=== PATIENT | male | born 1955 | race Hispanic/Latino ===

== ENCOUNTER 2017-04-27 10:40 | Emergency (ER) | payer MEDICARE ==
[~2017-04-27] VITALS: Ht 165.1 cm; Wt 96.6 kg
[~2017-04-27 10:40] MED LIST: DICYCLOMINE PO; DULCOLAX; HUMALOG; LANTUS; LYRICA PO; METOPROLOL PO; MONTELUKAST; OMEPRAZOLE40 MG; SIMVASTATIN PO; STENDRA; TEMAZEPAM15 MG PO; TRADJENTA5 MG PO; TRAMADOL; VICTOZA 3-0.6 MG/0.1 SQ
[2017-04-27] MEDS ORDERED: DIATRIZOATE MEGL/DIATRIZOA SOD 30 ML BTL PO ONE (11:09)
[2017-04-27 11:19] LABS: BASOPHILS % 0.4 % (0.0-1.0); EOSINOPHILS # (AUTO) 0.1 (0.0-0.4); EOSINOPHILS % 1.3 % (0.0-6.0); HEMATOCRIT 50.3 % (38.2-49.6); HEMOGLOBIN 16.5 g/dL (14.0-18.0); LYMPHOCYTES # (AUTO) 1.9 (1.0-3.2); LYMPHOCYTES % 19.3 % (18.0-39.1); MEAN CORPUSCULAR HEMOGLOBIN 30.2 pg (28-32); MEAN CORPUSCULAR HGB CONC 32.8 g/dL (31-35); MONOCYTES # (AUTO) 0.6 (0.2-0.8); MONOCYTES % 6.1 % (4.4-11.3); NEUTROPHILS # (AUTO) 7.3 (2.1-6.9); NEUTROPHILS % 72.6 % (38.7-80.0); PLATELET COUNT 239 x10e3/uL (140-360); RED BLOOD COUNT 5.47 x10e6/uL (4.3-5.7); RED CELL DISTRIBUTION WIDTH 13.1 % (11.7-14.4)
[2017-04-27 11:41] LABS: ALBUMIN 3.8 g/dL (3.5-5.0); ALBUMIN/GLOBULIN RATIO 0.8 (0.8-2.0); ANION GAP 14.7 mmol/L (8-16); CALCIUM 10.1 mg/dL (8.4-10.2); CREATININE, SERUM 1.28 mg/dL (0.72-1.25); POTASSIUM 4.7 mmol/L (3.5-5.1)
[2017-04-27 13:38] LABS: BILIRUBIN,URINE NEGATIVE (NEGATIVE); KETONES,URINE NEGATIVE (NEGATIVE); LEUKOCYTE ESTERASE ,URINE NEGATIVE (NEGATIVE); NITRITE,URINE NEGATIVE (NEGATIVE); URINE UROBILINOGEN 0.2 mg/dL (0.2 - 1)
[2017-04-27 13:51] LABS: CLARITY,URINE SL CLOUDY (CLEAR); COLOR,URINE YELLOW (YELLOW); PROTEIN,URINE DIPSTICK 1+ (NEGATIVE)
[2017-04-27 14:07] LABS: EPITHELIAL CELLS,URINE FEW /LPF
--- NOTE | 2017-04-27 14:10 | Diagnostic Imaging Report ---
PROCEDURE: CT ABDOMEN AND PELVIS WITH CONTRAST TECHNIQUE: The abdomen and pelvis were scanned utilizing a multidetector helical scanner from the diaphragm to the lesser trochanter after the IV administration of 100 cc of Isovue 370 and the oral administration of Gastroview. Coronal and sagittal multiplanar reformations were obtained. COMPARISON: None. INDICATIONS: ABDOMINAL PAIN FINDINGS: LOWER THORAX: Normal. HEPATOBILIARY: No focal hepatic lesions. No biliary ductal dilatation. Cholecystectomy. SPLEEN: No splenomegaly. PANCREAS: No focal masses or ductal dilatation. ADRENALS: No adrenal nodules. KIDNEYS/URETERS: No hydronephrosis, stones, or solid mass lesions. PELVIC ORGANS/BLADDER: Unremarkable. PERITONEUM / RETROPERITONEUM: No free air or fluid. LYMPH NODES: No lymphadenopathy. VESSELS: Unremarkable. GI TRACT: No distention or wall thickening. Normal appendix. Moderate amount of retained feces limits intraluminal evaluation. BONES AND SOFT TISSUES: Unremarkable. Degenerative changes of the lumbar spine. IMPRESSION: No acute abnormality of the abdomen and pelvis. Dictated by: David Marcos M.D. on 04/27/2017 at 14:20 Electronically approved by: David Marcos M.D. on 04/27/2017 at 14:20
[2017-04-27 14:47] LABS: CREATINE KINASE 97 IU/L (30-200)
[2017-04-27] MEDS ORDERED: IOPAMIDOL 370 MG/ML 200 ML INFUS..BTL INJ ONE (22:54)
[2017-04-27] MEDS ORDERED: SODIUM CHLORIDE 0.9% 50ML 50 ML ONE (22:54)
== END 2017-04-27 18:02 | disposition home or self-care (01) ==
LOC: ER 10:40
DX: R07.89 Other chest pain (principal); R10.11 Right upper quadrant pain; E11.9 Type 2 diabetes mellitus without complications; I10 Essential (primary) hypertension
CPT/HCPCS: 36415; 74177; 80053; 81001; 82550; 84484; 85025; 87086; 93005; 99284; Q9967

== ENCOUNTER → 2017-12-24 | Outpatient (CLI) | payer MEDICARE ==
[~2017-12-24] MED LIST changes: +DIATRIZOATE MEGL/DIATRIZOA SOD 30 ML BTL PO ONE; +IOPAMIDOL 370 MG/ML 200 ML INFUS..BTL INJ ONE; +SODIUM CHLORIDE 0.9% 50ML 50 ML ONE
[2017-12-24 09:45] LABS: CREATININE, SERUM 1.23 mg/dL (0.72-1.25)
--- NOTE | 2017-12-24 11:52 | Diagnostic Imaging Report ---
EXAM: CT Abdomen and Pelvis WITH contrast INDICATION: Right lower quadrant pain and constipation. COMPARISON: None. TECHNIQUE: Abdomen and pelvis were scanned utilizing a multidetector helical scanner from the lung base to the pubic symphysis after administration of IV contrast. Coronal and sagittal reformations were obtained. Routine protocol was performed. Scan was performed when during portal venous phase. IV CONTRAST: 100 mL of Isovue 370 ORAL CONTRAST: Gastrografin COMPLICATIONS: None RADIATION DOSE: Total DLP: 701.9 mGy*cm Estimated effective dose: (DLP x 0.015 x size factor) mSv CTDIvol has been reviewed. It is below the limits set by the Radiation Protocol Committee (RPC). FINDINGS: LINES and TUBES: None. LOWER THORAX: There is calcification of the coronary arteries, consistent with atherosclerotic disease. HEPATOBILIARY: Diffuse fatty infiltration of the liver. No evidence of focal lesion. No biliary ductal dilation. GALLBLADDER: Status post cholecystectomy. SPLEEN: No splenomegaly. PANCREAS: No focal masses or ductal dilatation. ADRENALS: No adrenal nodules KIDNEYS/URETERS: Kidneys enhance symmetrically. No evidence of hydronephrosis, solid mass, or stone. GI TRACT: There is diffuse mild colonic and rectal wall thickening. No evidence of distension. Appendix is normal. No significantly elevated stool burden. PELVIC ORGANS/BLADDER: Unremarkable. LYMPH NODES: No lymphadenopathy. VESSELS: There are scattered atherosclerotic calcifications in the aorta and branch vessels. PERITONEUM / RETROPERITONEUM: No free air or fluid. BONES AND SOFT TISSUES: Unremarkable. CONCLUSION: Findings consistent with diffuse mild colitis. Hepatic steatosis. Normal appendix. Signed by: Dr. Festus Stratton MD on 12/24/2017 11:49 AM
== END ==
LOC: CT 08:48
PROVIDERS: ATTEND Internal Medicine Gastroenterology
DX: R10.31 Right lower quadrant pain (principal); K59.00 Constipation, unspecified
CPT/HCPCS: 36415; 74177; 82565; 84520; Q9967

== ENCOUNTER 2022-09-05 10:23 | Inpatient (IN) | payer MEDICARE ==
[~2022-09-05] VITALS: Ht 165.1 cm; Wt 81.6 kg
[~2022-09-05 10:23] MED LIST changes: -DIATRIZOATE MEGL/DIATRIZOA SOD 30 ML BTL PO ONE; -IOPAMIDOL 370 MG/ML 200 ML INFUS..BTL INJ ONE; -SODIUM CHLORIDE 0.9% 50ML 50 ML ONE
[2022-09-05] MEDS ORDERED: ALBUTEROL/IPRATROPIUM 3 ML NEB NEB ONE (10:45)
[2022-09-05] MEDS ORDERED: ASPIRIN 81 MG CHEW TAB PO ONE ×2 (10:45→13:30)
[2022-09-05 10:46] LABS: BASOPHILS % 0.3 % (0.0-1.0); EOSINOPHILS # (AUTO) 0.1 (0.0-0.4); EOSINOPHILS % 1.9 % (0.0-6.0); HEMATOCRIT 36.6 % (38.2-49.6); HEMOGLOBIN 11.7 g/dL (14.0-18.0); LYMPHOCYTES % 26.7 % (18.0-39.1); MEAN CORPUSCULAR VOLUME 93.8 fL (81-99); MONOCYTES # (AUTO) 0.7 (0.2-0.8); MONOCYTES % 8.8 % (4.4-11.3); NEUTROPHILS # (AUTO) 4.7 (2.1-6.9); NEUTROPHILS % 61.9 % (38.7-80.0); PLATELET COUNT 243 x10e3/uL (140-360); RED CELL DISTRIBUTION WIDTH 13.3 % (11.7-14.4)
[2022-09-05 11:00] LABS: ANION GAP 15.2 mmol/L (8-16); CALCIUM 9.5 mg/dL (8.4-10.2); CREATININE, SERUM 1.31 mg/dL (0.72-1.25); POTASSIUM 4.2 mmol/L (3.5-5.1)
[2022-09-05] MEDS ORDERED: IOPAMIDOL 370 MG/ML 100 ML INFUS..BTL INJ ONE (11:14)
[2022-09-05] MEDS ORDERED: SODIUM CHLORIDE 0.9% 250ML 250 ML IV ONE (11:30)
[2022-09-05 12:11] LABS: BACTERIA,URINE FEW /HPF; CLARITY,URINE CLEAR (CLEAR); COLOR,URINE YELLOW (YELLOW); EPITHELIAL CELLS,URINE FEW /LPF; KETONES,URINE NEGATIVE (NEGATIVE); LEUKOCYTE ESTERASE ,URINE NEGATIVE (NEGATIVE); NITRITE,URINE NEGATIVE (NEGATIVE); PROTEIN,URINE DIPSTICK NEGATIVE (NEGATIVE); RBC,URINE 0-5 /HPF (0-5); URINE UROBILINOGEN 0.2 mg/dL (0.2 - 1); WBC,URINE (MAN) 0-5 /HPF (0-5)
[2022-09-05] MEDS ORDERED: ASPIRIN 325 MG TAB EC PO STA (13:17)
[2022-09-05] MEDS ORDERED: NITROGLYCERIN 2% OINT 1 GM PKT TOP ONE (13:30)
[2022-09-05] MEDS ORDERED: SODIUM CHLORIDE FLUSH 10 ML SYR INJ PRN (13:30)
[2022-09-05 13:39] VITALS: PULSE 82; RESP 20; O2SAT 95
[2022-09-05] MEDS: FAMOTIDINE 20 MG/2 ML VIAL IV SCH ×2 (14:11→21:18)
[2022-09-05 15:45] VITALS: BP 129/72; PULSE 80; RESP 17; TEMP 97.3; O2SAT 99
[2022-09-05] MEDS: NITROGLYCERIN 2% OINT 1 GM PKT TOP SCH (16:01)
[2022-09-05 20:00] VITALS: BP 110/62; PULSE 83; RESP 20; TEMP 98.7; O2SAT 100
[2022-09-05 20:05] VITALS: PULSE 80; RESP 20; O2SAT 98
[2022-09-05 21:00] VITALS: BP 110/62; PULSE 80; RESP 20; TEMP 98.7; O2SAT 98
[2022-09-05] MEDS ORDERED: ACETAMINOPHEN 325 MG TAB PO PRN (22:30)
[2022-09-05] MEDS ORDERED: IPRATROPIUM BROMIDE 0.02% 2.5 ML NEB NEB PRN (23:00)
[2022-09-05] MEDS ORDERED: FLOMAX0.4 MG PO (23:06)
[2022-09-05] MEDS ORDERED: FINASTERIDE5 MG PO (23:06)
[2022-09-05] MEDS ORDERED: ATORVASTATIN CA20 MG PO (23:06)
[2022-09-05] MEDS ORDERED: SOLIQUA 100 UNIT3 ML SQ (23:06)
[2022-09-05] MEDS ORDERED: PANTOPRAZOLE SO40 MG PO (23:06)
[2022-09-05] MEDS ORDERED: LOSARTAN POTASS25 MG PO (23:06)
[2022-09-05] MEDS ORDERED: METOPROLOL SUCC50 MG PO (23:06)
[2022-09-05] MEDS ORDERED: ACTOS15 MG PO (23:06)
[2022-09-05 23:12] VITALS: PULSE 83; RESP 20; O2SAT 96
[2022-09-05] MEDS: ALBUTEROL SULF 0.083% NEB SOLN 3 ML NEB NEB PRN (23:12)
[2022-09-06] VITALS (9 sets, daily range): BP systolic 105–132; BP diastolic 58–64; PULSE 67–86; RESP 18–20; TEMP 97.8–98.2; O2SAT 94–100
[2022-09-06] MEDS: NITROGLYCERIN 2% OINT 1 GM PKT TOP SCH ×4 (00:22→17:29)
[2022-09-06] MEDS: ASPIRIN 81 MG ENTERIC COATED PO SCH (10:01)
[2022-09-06] MEDS: FAMOTIDINE 20 MG/2 ML VIAL IV SCH ×2 (10:01→22:02)
[2022-09-06] MEDS ORDERED: ACETAMINOPHEN 325 MG TAB PO PRN (10:15)
[2022-09-06] MEDS ORDERED: DEXTROSE 50% SYRINGE 50 ML IV PRN (10:15)
[2022-09-06] MEDS: INSULIN REGULAR, HUMAN 100 UNIT/1 ML SQ SCH ×3 (13:33→21:00)
[2022-09-06] MEDS: FLUTICASONE PROPIONATE NASAL SPRAY NS SCH ×2 (13:34→22:01)
[2022-09-06] MEDS ORDERED: ENOXAPARIN SOD INJ 40 MG/0.4 ML SYR SC SCH (17:00)
[2022-09-06] MEDS: ENOXAPARIN SOD INJ 40 MG/0.4 ML SYR SC SCH (17:28)
[2022-09-06] MEDS ORDERED: METOPROLOL TARTRATE INJ 1 MG/ML VIAL IV ONE (20:45)
[2022-09-06] MEDS: TAMSULOSIN HCL 0.4 MG CAP PO SCH (22:02)
[2022-09-06] MEDS: ATORVASTATIN 40 MG TAB PO SCH (22:02)
[2022-09-07] VITALS (11 sets, daily range): BP systolic 123–148; BP diastolic 67–80; PULSE 71–89; RESP 17–20; TEMP 97.8–98.3; O2SAT 95–100
[2022-09-07] MEDS: ALBUTEROL SULF 0.083% NEB SOLN 3 ML NEB NEB PRN (00:10)
[2022-09-07] MEDS: NITROGLYCERIN 2% OINT 1 GM PKT TOP SCH ×4 (04:45→17:42)
[2022-09-07] MEDS: INSULIN REGULAR, HUMAN 100 UNIT/1 ML SQ SCH ×4 (07:30→19:42)
[2022-09-07] MEDS: ASPIRIN 81 MG ENTERIC COATED PO SCH (09:00)
[2022-09-07] MEDS ORDERED: METOPROLOL SUCCINATE 50 MG TAB XL PO SCH (09:00)
[2022-09-07] MEDS: FINASTERIDE 5 MG TAB PO SCH (09:00)
[2022-09-07] MEDS: FLUTICASONE PROPIONATE NASAL SPRAY NS SCH ×2 (09:33→20:58)
[2022-09-07] MEDS: FAMOTIDINE 20 MG/2 ML VIAL IV SCH ×2 (09:34→20:57)
[2022-09-07 09:45] LABS: ANION GAP 13.1 mmol/L (8-16); CALCIUM 9.3 mg/dL (8.4-10.2); CREATININE, SERUM 1.32 mg/dL (0.72-1.25); POTASSIUM 4.1 mmol/L (3.5-5.1)
[2022-09-07] MEDS ORDERED: REGADENOSON 0.4 MG/5 ML SYR IV ONE (11:27)
[2022-09-07] MEDS ORDERED: KETOROLAC TROMETHAMINE 30 MG/ML VIAL IV ONE (13:00)
[2022-09-07] MEDS: SODIUM CHLORIDE 0.9% 1000ML 1,000 ML IV SCH (14:03)
[2022-09-07] MEDS: ALBUTEROL/IPRATROPIUM 3 ML NEB NEB PRN ×2 (16:24→19:47)
[2022-09-07] MEDS: ENOXAPARIN SOD INJ 40 MG/0.4 ML SYR SC SCH (17:38)
[2022-09-07] MEDS: ATORVASTATIN 40 MG TAB PO SCH (20:57)
[2022-09-07] MEDS: TAMSULOSIN HCL 0.4 MG CAP PO SCH (20:58)
[2022-09-08] VITALS (11 sets, daily range): BP systolic 104–130; BP diastolic 55–76; PULSE 79–111; RESP 17–20; TEMP 97.8–98.3; O2SAT 94–100
[2022-09-08] MEDS: NITROGLYCERIN 2% OINT 1 GM PKT TOP SCH ×4 (00:21→18:05)
[2022-09-08] MEDS: ALBUTEROL/IPRATROPIUM 3 ML NEB NEB PRN ×3 (02:30→19:45)
[2022-09-08] MEDS: FAMOTIDINE 20 MG/2 ML VIAL IV SCH ×2 (09:18→20:54)
[2022-09-08] MEDS: ASPIRIN 81 MG ENTERIC COATED PO SCH (09:18)
[2022-09-08] MEDS: FINASTERIDE 5 MG TAB PO SCH (09:18)
[2022-09-08] MEDS: NIFEDIPINE CR 30 MG TAB PO SCH (09:18)
[2022-09-08] MEDS: FLUTICASONE PROPIONATE NASAL SPRAY NS SCH ×2 (09:18→20:54)
[2022-09-08] MEDS: SODIUM CHLORIDE 0.9% 1000ML 1,000 ML IV SCH (09:38)
[2022-09-08] MEDS: INSULIN REGULAR, HUMAN 100 UNIT/1 ML SQ SCH ×4 (09:45→20:39)
[2022-09-08] MEDS ORDERED: METHYLPREDNISOLONE SOD SUCC 40 MG/ML VIAL 1ML IV ONE ×2 (15:00→18:20)
[2022-09-08] MEDS: ENOXAPARIN SOD INJ 40 MG/0.4 ML SYR SC SCH (18:06)
[2022-09-08] MEDS: TAMSULOSIN HCL 0.4 MG CAP PO SCH (20:54)
[2022-09-08] MEDS: ATORVASTATIN 40 MG TAB PO SCH (20:55)
[2022-09-09 01:04] VITALS: BP 106/67; PULSE 87; RESP 16; TEMP 98.7; O2SAT 98
[2022-09-09 04:56] VITALS: BP 109/62; PULSE 91; RESP 16; TEMP 98.3; O2SAT 99
[2022-09-09] MEDS: ALBUTEROL/IPRATROPIUM 3 ML NEB NEB PRN (06:20)
[2022-09-09] MEDS: SODIUM CHLORIDE 0.9% 1000ML 1,000 ML IV SCH (06:30)
[2022-09-09] MEDS: NITROGLYCERIN 2% OINT 1 GM PKT TOP SCH ×2 (06:30)
[2022-09-09 06:33] VITALS: PULSE 96; RESP 22; O2SAT 97
[2022-09-09] MEDS ORDERED: ASPIRIN EC81 MG PO ×2 (07:35→08:08)
[2022-09-09] MEDS ORDERED: NIFEDIPINE ER30 M1 PO ×2 (07:35→08:08)
[2022-09-09 08:57] VITALS: BP 115/62; PULSE 91; RESP 19; TEMP 98.2; O2SAT 98
[2022-09-09] MEDS: FAMOTIDINE 20 MG/2 ML VIAL IV SCH (09:58)
[2022-09-09] MEDS: INSULIN REGULAR, HUMAN 100 UNIT/1 ML SQ SCH (09:58)
[2022-09-09] MEDS: ASPIRIN 81 MG ENTERIC COATED PO SCH (09:59)
[2022-09-09] MEDS: FINASTERIDE 5 MG TAB PO SCH (10:00)
[2022-09-09] MEDS: NIFEDIPINE CR 30 MG TAB PO SCH (10:00)
== END 2022-09-09 11:02 | disposition home or self-care (01) | DRG 302 ==
LOC: ER 10:34 → ERHOLD 13:28 → MED/SURG3 14:42 → OBSVTOIN 09-07 16:34
PROVIDERS: ADMIT Internal Medicine; ATTEND Internal Medicine
DX: I25.118 Atherosclerotic heart disease of native coronary artery with other forms of angina pectoris (principal); J96.91 Respiratory failure, unspecified with hypoxia; S22.32XA Fracture of one rib, left side, initial encounter for closed fracture; J44.0 Chronic obstructive pulmonary disease with (acute) lower respiratory infection; R07.89 Other chest pain; K21.9 Gastro-esophageal reflux disease without esophagitis; E78.5 Hyperlipidemia, unspecified; N40.0 Benign prostatic hyperplasia without lower urinary tract symptoms; I12.9 Hypertensive chronic kidney disease with stage 1 through stage 4 chronic kidney disease, or unspecified chronic kidney disease; E11.22 Type 2 diabetes mellitus with diabetic chronic kidney disease; N18.9 Chronic kidney disease, unspecified; Z96.652 Presence of left artificial knee joint; R60.0 Localized edema; X58.XXXA Exposure to other specified factors, initial encounter; D64.9 Anemia, unspecified; Y92.9 Unspecified place or not applicable; Z90.49 Acquired absence of other specified parts of digestive tract; Z79.4 Long term (current) use of insulin; Z79.899 Other long term (current) drug therapy; Z20.822 Contact with and (suspected) exposure to COVID-19
CPT/HCPCS: 36415; 71260; 78452; 80048; 80061; 81001; 82550; 82948; 83036; 83880; 84484; 85025; 85379; 87400; 93005; 93017; 93306; 94640; 94799; 96372; 99284; A9502; G0378; J1650; J1885; J2920; J7030; J7050; Q9967